=== PATIENT | female | born 1975 | race Caucasian/White ===

== ENCOUNTER 2018-09-10 16:15 | Emergency (ER) | payer MEDICAID, OTHER ==
[~2018-09-10] VITALS: Ht 157.5 cm; Wt 65.0 kg
[2018-09-10 16:17] VITALS: BP 132/76
== END 2018-09-10 17:37 | disposition left against medical advice (07) ==
LOC: ER 16:15
DX: Z53.21 Procedure and treatment not carried out due to patient leaving prior to being seen by health care provider (principal)

== ENCOUNTER 2020-07-01 10:37 | Inpatient (IN) | payer MEDICAID, OTHER ==
[~2020-07-01] VITALS: Ht 144.8 cm; Wt 84.2 kg
[2020-07-01] MEDS ORDERED: MORPHINE SULFATE 4 MG/ML CPJ (NOT FOR IM USE) IV STA (11:19)
[2020-07-01] MEDS ORDERED: SODIUM CHLORIDE 0.9% 1,000 ML IV ONE (11:19)
[2020-07-01] MEDS ORDERED: ONDANSETRON HCL 4MG/2ML INJ IV STA (11:19)
[2020-07-01 12:21] LABS: BASOPHILS % 0.4 % (0.0-2.0); EOSINOPHILS % 0.6 % (0.0-5.0); HEMATOCRIT. 37.8 % (36.0-48.0); HEMOGLOBIN. 13.1 g/dL (12.0-16.0); LYMPHOCYTES % 13.1 % (20.0-50.0); MEAN CORPUSCULAR HEMOGLOBIN 31.4 pg (28.0-32.0); MEAN CORPUSCULAR VOLUME 90.8 fL (81.0-99.0); MEAN PLATELET VOLUME 8.3 fl (7.4-10.4); MONOCYTES % 4.7 % (2.0-8.0); NEUTROPHILS % 81.2 % (40.0-76.0); PLATELET 245 x1000/uL (130-400); RED BLOOD CELL COUNT 4.16 mill/uL (4.2-5.4); RED CELL DISTRIBUTION WIDTH 12.9 % (11.6-14.6)
[2020-07-01 12:28] LABS: CHLORIDE 109 mEq/L (98-107)
[2020-07-01 12:30] LABS: INR 0.9; PROTHROMBIN TIME 9.8 sec (9.6-11.0)
[2020-07-01 12:33] LABS: ETHANOL BLOOD < 10 mg/dL
[2020-07-01 12:54] LABS: CLARITY URINE CLEAR (CLEAR); COLOR URINE YELLOW (YELLOW); KETONES URINE NEGATIVE (NEGATIVE); LEUKOCYTE ESTERASE URINE NEGATIVE (NEGATIVE); NITRITE URINE NEGATIVE (NEGATIVE); OCCULT BLOOD URINE NEGATIVE (NEGATIVE); PROTEIN URINE NEGATIVE (NEGATIVE); SPECIFIC GRAVITY URINE 1.015 (1.005-1.030)
[2020-07-01 13:14] LABS: HCG SCREEN NEGATIVE
[2020-07-01 13:25] LABS: *AMPHETAMINES SCREEN URINE NEGATIVE (NEGATIVE); *BARBITURATES SCREEN URINE NEGATIVE (NEGATIVE); *BENZODIAZEPINES SCREEN URINE NEGATIVE (NEGATIVE); CANNABINOID URINE SCREEN NEGATIVE (NEGATIVE); METHADONE URINE SCREEN NEGATIVE (NEGATIVE); OPIATES URINE SCREEN NEGATIVE (NEGATIVE); PHENCYCLIDINE URINE SCREEN NEGATIVE (NEGATIVE)
[2020-07-01 13:26] LABS: *COCAINE SCREEN URINE NEGATIVE (NEGATIVE)
[2020-07-01] MEDS ORDERED: IOHEXOL-300 100 ML BOTTLE ONE (14:44)
[2020-07-01] MEDS ORDERED: ASPIRIN 81MG TABLET PO ONE (18:15)
[2020-07-01] MEDS ORDERED: LORAZEPAM 0.5MG TABLET PO PRN (18:30)
[2020-07-01] MEDS ORDERED: IPRATROPIUM/ALBUTEROL 0.5-3(2.5)MG/3ML NEB HHN PRN (18:30)
[2020-07-01] MEDS ORDERED: ONDANSETRON HCL 4MG/2ML INJ IV PRN (18:30)
[2020-07-01] MEDS ORDERED: CLONIDINE 0.1MG TABLET PO PRN (18:30)
[2020-07-01] MEDS ORDERED: HYDROCODONE/ACETAMINOPHEN 5/325MG TABLET PO PRN (18:30)
[2020-07-01] MEDS ORDERED: ACETAMINOPHEN 325MG TABLET PO PRN (18:30)
[2020-07-01] MEDS ORDERED: GUAIFENESIN 200MG/10ML SUGAR FREE UDC PO PRN (18:30)
[2020-07-01] MEDS ORDERED: DOCUSATE SODIUM 100MG CAPSULE PO PRN (18:30)
[2020-07-01] MEDS: ACETAMINOPHEN 325MG TABLET PO PRN (19:12)
[2020-07-01 23:05] VITALS: BP 141/57
[2020-07-02] VITALS (13 sets, daily range): BP systolic 85–129; BP diastolic 42–99
[2020-07-02] MEDS ORDERED: SODIUM CHLORIDE 0.9% 250 ML IV NR (05:00)
== END 2020-07-02 23:15 | disposition home or self-care (01) ==
LOC: ER 10:37 → EDBEDREQTM 14:54 → EDBEDREQ 14:54 → 5WST 17:00 → EDBEDREQ 17:01 → EDBEDREQTM 17:01 → ENRESERV 20:52 → 5WST 07-02 01:23 → 5EST 07-02 07:30
PROVIDERS: ADMIT Internal Medicine; ATTEND Internal Medicine
DX: K80.20 Calculus of gallbladder without cholecystitis without obstruction (principal); R73.9 Hyperglycemia, unspecified; R74.0 Nonspecific elevation of levels of transaminase and lactic acid dehydrogenase [LDH]; D50.0 Iron deficiency anemia secondary to blood loss (chronic); K40.20 Bilateral inguinal hernia, without obstruction or gangrene, not specified as recurrent; Z87.11 Personal history of peptic ulcer disease; K57.90 Diverticulosis of intestine, part unspecified, without perforation or abscess without bleeding; K59.00 Constipation, unspecified; E87.8 Other disorders of electrolyte and fluid balance, not elsewhere classified; E87.2 Acidosis
CPT/HCPCS: 36415; 71045; 74177; 76700; 80053; 80305; 80320; 81003; 83605; 84484; 84703; 85025; 86850; 86900; 93005; 96374; 99285; J2270; J2405; J7030; Q9967; G0480

== ENCOUNTER 2020-07-10 14:45 | Emergency (ER) | payer MEDICAID, OTHER ==
[~2020-07-10] VITALS: Ht 144.8 cm; Wt 77.0 kg
[2020-07-10] MEDS ORDERED: ONDANSETRON 4MG ODT PO STA (16:10)
[2020-07-10] MEDS ORDERED: MORPHINE SULFATE 4 MG/ML CPJ (NOT FOR IM USE) IV STA (16:10)
[2020-07-10 16:35] LABS: BASOPHILS % 0.7 % (0.0-2.0); EOSINOPHILS % 1.3 % (0.0-5.0); HEMATOCRIT. 38.7 % (36.0-48.0); HEMOGLOBIN. 13.2 g/dL (12.0-16.0); LYMPHOCYTES % 21.7 % (20.0-50.0); MEAN CORPUSCULAR HEMOGLOBIN 30.7 pg (28.0-32.0); MEAN CORPUSCULAR VOLUME 90.2 fL (81.0-99.0); MEAN PLATELET VOLUME 8.1 fl (7.4-10.4); MONOCYTES % 5.6 % (2.0-8.0); NEUTROPHILS % 70.7 % (40.0-76.0); PLATELET 285 x1000/uL (130-400); RED BLOOD CELL COUNT 4.29 mill/uL (4.2-5.4); RED CELL DISTRIBUTION WIDTH 12.9 % (11.6-14.6)
[2020-07-10 16:43] LABS: CHLORIDE 106 mEq/L (98-107)
[2020-07-10 16:55] LABS: PROTHROMBIN TIME 10.3 sec (9.6-11.0)
[2020-07-10 17:35] LABS: CLARITY URINE CLOUDY (CLEAR); COLOR URINE YELLOW (YELLOW); KETONES URINE NEGATIVE (NEGATIVE); LEUKOCYTE ESTERASE URINE TRACE (NEGATIVE); NITRITE URINE NEGATIVE (NEGATIVE); OCCULT BLOOD URINE 3+ (NEGATIVE); PROTEIN URINE 1+ (NEGATIVE); SPECIFIC GRAVITY URINE 1.014 (1.005-1.030); UROBILINOGEN URINE 0.2 E.U./dL (0.2-1.0)
[2020-07-10] MEDS ORDERED: MORPHINE SULFATE 4 MG/ML CPJ (NOT FOR IM USE) IV ONE (18:15)
[2020-07-10 22:01] VITALS: BP 114/65
== END 2020-07-10 23:02 | disposition short-term general hospital (02) ==
LOC: ER 14:45 → CANBEDREQ 23:39
DX: K80.50 Calculus of bile duct without cholangitis or cholecystitis without obstruction (principal); D64.9 Anemia, unspecified
CPT/HCPCS: 36415; 76705; 80053; 81003; 81025; 83690; 85025; 85610; 93005; 96374; 96376; 99285; J2270; Q0162